=== PATIENT | male | born 1940 | race Two or more races ===

== ENCOUNTER 2024-04-27 20:45 | Emergency (ER) | payer MEDICARE, OTHER ==
[~2024-04-27] VITALS: Ht 167.6 cm; Wt 81.6 kg
[2024-04-28 00:39] VITALS: BP 129/68; TEMP 98.6; O2SAT 98
== END 2024-04-28 01:17 | disposition home or self-care (01) ==
LOC: ER 20:48
DX: S02.2XXA Fracture of nasal bones, initial encounter for closed fracture (principal); S01.511A Laceration without foreign body of lip, initial encounter; R55 Syncope and collapse; G20.A1 Parkinson's disease without dyskinesia, without mention of fluctuations; W18.39XA Other fall on same level, initial encounter; Y93.89 Activity, other specified; Y92.89 Other specified places as the place of occurrence of the external cause; Y99.8 Other external cause status
CPT/HCPCS: 70450-TC; 70486-TC; 72125-TC

== ENCOUNTER 2024-06-26 13:20 | Emergency (ER) | payer MEDICARE, OTHER ==
[~2024-06-26] VITALS: Ht 167.6 cm; Wt 80.7 kg
[2024-06-26 13:50] LABS: BASOPHILS % (AUTO) 0.3 % (0.0-2.0); EOSINOPHILS # (AUTO) 0.2 K/uL (0.0-0.7); EOSINOPHILS % (AUTO) 1.9 % (0.0-6.0); HEMATOCRIT 38 % (39-51); HEMOGLOBIN 12.6 g/dL (13.5-17.5); LYMPHOCYTES # (AUTO) 3.5 K/uL (0.8-4.8); LYMPHOCYTES % (AUTO) 37.3 % (20.0-44.0); MEAN CORPUSCULAR HEMOGLOBIN 28 PG (26.0-33.0); MEAN CORPUSCULAR HGB CONC 34 g/dl (31.0-36.0); MEAN CORPUSCULAR VOLUME 82 fL (80-96); MONOCYTES % (AUTO) 10.4 % (2.0-12.0); NEUTROPHILS # (AUTO) 4.7 K/uL (1.8-8.9); NEUTROPHILS % (AUTO) 50.1 % (43.0-81.0); PLATELET COUNT (AUTO) 358 K/uL (150-450); RED BLOOD CELL COUNT(AUTO) 4.59 MIL/uL (4.5-6.0); RED CELL DISTRIBUTION WIDTH 15.3 % (11.5-15.0); WHITE BLOOD COUNT (AUTO) 9.4 K/uL (4.3-11.0)
[2024-06-26 13:57] LABS: CALCIUM, SERUM 9.2 mg/dL (8.5-10.1); CREATININE 2.5 mg/dL (0.6-1.3); POTASSIUM 4.7 mmol/L (3.5-5.1)
[2024-06-26 14:05] LABS: INR 1.27 (0.91-1.10); PARTIAL THROMBOPLASTIN TIME 31.1 SEC (24.3-34.3); PROTHROMBIN TIME 13.3 SECS (9.2-11.1)
[2024-06-26] MEDS ORDERED: ACETAMINOPHEN ES 500 MG TABLET ONE (14:29)
[2024-06-26] MEDS ORDERED: IBUPROFEN 400 MG TABLET ONE (14:29)
[2024-06-26] MEDS: IBUPROFEN 400 MG TABLET PO ONE (14:33)
[2024-06-26] MEDS: ACETAMINOPHEN ES 500 MG TABLET PO ONE (14:33)
[2024-06-26 16:51] VITALS: BP 142/74; TEMP 98.6; O2SAT 98
== END 2024-06-26 16:51 | disposition home or self-care (01) ==
LOC: ER 13:26
DX: M79.641 Pain in right hand (principal); G20.A1 Parkinson's disease without dyskinesia, without mention of fluctuations
CPT/HCPCS: 36415; 73130-TC; 80048-TC; 85025-TC; 85730-TC

== ENCOUNTER 2024-08-11 11:46 | Emergency (ER) | payer MEDICARE, OTHER ==
[~2024-08-11] VITALS: Ht 172.7 cm; Wt 81.6 kg
[2024-08-11] MEDS ORDERED: ERYT3.5O9 RIGHTEYE (11:49)
[2024-08-11 11:53] VITALS: BP 150/77; TEMP 98.6
[2024-08-11 13:14] VITALS: O2SAT 97
[2024-08-13] MEDS ORDERED: ERYT3.5O9 RIGHTEYE (14:25)
== END 2024-08-11 13:15 | disposition home or self-care (01) ==
LOC: ER 11:50
DX: H01.001 Unspecified blepharitis right upper eyelid (principal); I10 Essential (primary) hypertension; E78.5 Hyperlipidemia, unspecified; G20.A1 Parkinson's disease without dyskinesia, without mention of fluctuations

== ENCOUNTER 2024-08-14 11:31 | Emergency (ER) | payer MEDICARE, OTHER ==
[~2024-08-14] VITALS: Ht 172.7 cm; Wt 81.6 kg
[~2024-08-14 11:31] MED LIST: ERYT3.5O9 RIGHTEYE
[2024-08-14 15:35] VITALS: BP 129/75; TEMP 98.1; O2SAT 98
== END 2024-08-14 15:36 ==
LOC: ER 11:35
DX: Z04.89 Encounter for examination and observation for other specified reasons (principal); I10 Essential (primary) hypertension; G20.A1 Parkinson's disease without dyskinesia, without mention of fluctuations; E78.5 Hyperlipidemia, unspecified

== ENCOUNTER 2025-01-16 14:42 | Emergency (ER) | payer MEDICARE, OTHER ==
[~2025-01-16] VITALS: Ht 167.6 cm; Wt 85.7 kg
[2025-01-16] MEDS ORDERED: FLUORESCEIN SODIUM OPHTH 1 EA STRIP ONE (15:57)
[2025-01-16] MEDS ORDERED: TETRAcaine 5 ML BOTTLE ONE (15:57)
[2025-01-16] MEDS: FLUORESCEIN SODIUM OPHTH 1 EA STRIP OP ONE (15:58)
[2025-01-16] MEDS: TETRAcaine 5 ML BOTTLE EACHEYE ONE (15:58)
[2025-01-16] MEDS ORDERED: ERYT3.5O9 RIGHTEYE (16:13)
[2025-01-16] MEDS: ERYTHROMYCIN BASE OPHTH 3.5 GM TUBE OP ONE (16:52)
[2025-01-16 19:06] VITALS: BP 137/70; TEMP 98.7; O2SAT 99
== END 2025-01-16 18:50 ==
LOC: ER 14:46
DX: H10.89 Other conjunctivitis (principal); E78.5 Hyperlipidemia, unspecified; G20.A1 Parkinson's disease without dyskinesia, without mention of fluctuations; I11.9 Hypertensive heart disease without heart failure